=== PATIENT | female | born 1945 | race Caucasian/White ===

== ENCOUNTER → 2021-03-26 14:48 | Outpatient (CLI) | payer MEDICARE, BC, SELFPAY ==
--- NOTE | 2021-03-26 | DI.MG.S_ITS ---
UNILATERAL LEFT DIGITAL DIAGNOSTIC MAMMOGRAM 3D/2D WITH ADDITIONAL VIEWS: 03/26/2021 CLINICAL: Additional evaluation requested from prior study. Comparison is made to exams dated: 01/07/2021 mammogram, 01/07/2021 mammogram, and 01/07/2020 mammogram - outside facility. There are scattered fibroglandular elements in left breast. The irregular asymmetry in the left breast at 3 o'clock middle depth is no longer seen and most likely is fibroglandular tissue. This is not confirmed with additional views. No other significant masses or calcifications are seen in the breast. IMPRESSION: INCOMPLETE: NEEDS ADDITIONAL IMAGING EVALUATION Resolution of screening mammography abnormality with additional views. Ultrasound evaluation to confirm resolution is recommended and was performed immediately following this exam. This exam was interpreted at Station ID: [id number]. NOTE: For mammograms, a report in lay terms will be sent to the patient. Approximately 15% of breast malignancies will not be visualized mammographically. In the management of a palpable breast mass, a negative mammogram must not discourage biopsy of a clinically suspicious lesion. Electronically Signed By: Mary calle/:03/26/2021 15:25:32 ACR BI-RADS Category 0: Incomplete 3340F
--- NOTE | 2021-03-26 14:51 | DI.US.S_ITS ---
LIMITED ULTRASOUND OF LEFT BREAST: 03/26/2021 CLINICAL: Patient returns today to evaluate an asymmetry in the left breast. Comparison is made to exams dated: 03/26/2021 mammogram - [facility], 01/07/2021 mammogram, 01/07/2021 mammogram, 01/07/2020 mammogram - outside facility, 08/18/2016 mammogram - [facility], and 08/14/2012 mammogram - [facility]. Ultrasound of the left breast 3 o'clock region was performed. Ruiz scale images of the real-time examination were reviewed. No significant abnormalities were seen sonographically in the left breast. Specifically, no finding to correspond to the patient's resolved screening mammographic abnormality. IMPRESSION: NEGATIVE There is no sonographic correlate to the patient's screening mammography abnormality and no evidence of malignancy. Return to annual mammogram screening schedule is recommended. Findings and recommendations were conveyed to the patient at time of exam. This exam was interpreted at Station ID: [id number]. Electronically Signed By: Mary calle/:03/26/2021 16:06:51 letter sent: Normal Exam Ultrasound BI-RADS: 1 Negative
== END ==
PROVIDERS: Family Provider Family Medicine; PCP Physician Assistant; Referring Provider Physician Assistant; Visit Provider Physician Assistant
DX: R92.8 Other abnormal and inconclusive findings on diagnostic imaging of breast (principal); N64.89 Other specified disorders of breast
CPT/HCPCS: 76642; 77065; G0279

== ENCOUNTER → 2021-08-12 11:13 | Outpatient (CLI) | payer MEDICARE, BC, SELFPAY | PROVIDERS: Family Provider Family Medicine; PCP Physician Assistant; Referring Provider Physician Assistant; Visit Provider Physician Assistant | DX: Z13.820 Encounter for screening for osteoporosis (principal); Z78.0 Asymptomatic menopausal state; M85.852 Other specified disorders of bone density and structure, left thigh | CPT/HCPCS: 77080 ==

== ENCOUNTER → 2021-11-02 09:08 | Outpatient (CLI) | payer MEDICARE, BC, SELFPAY ==
[2021-11-02 20:03] LABS: Add Manual Diff / Slide Review NO; Basophils Absolute Auto 0 /uL (0-100); Basophils Percent Auto 0.9 % (0-2); Eosinophils Absolute Auto 100 /uL (0-450); Eosinophils Percent Auto 2.2 % (2-4); Hematocrit 41.7 % (36-46); Hemoglobin 13.9 g/dL (12.0-16.0); Lymphocytes Absolute Auto 1700 /uL (1100-4500); Lymphocytes Percent Auto 31.9 % (25-40); Mean Corpuscular HGB Conc 33.3 % (30-36); Mean Corpuscular Hemoglobin 29.5 PG (26-34); Mean Corpuscular Volume 88.7 fL (80-100); Monocytes Absolute Auto 400 /uL (0-900); Monocytes Percent Auto 8.2 % (3-14); Neutrophils Absolute Auto 3000 /uL (1500-7000); Neutrophils Percent Auto 56.8 % (50-75); Platelet Count 199 X10^3/uL (150-400); Red Cell Distribution Width 13.9 % (11.6-14.8); White Blood Cell Count 5.3 X10^3/uL (4.5-11.0)
[2021-11-02 20:12] LABS: HEMOLYSIS < 15 (0-50); Iron 102 ug/dL (37-170)
[2021-11-02 20:20] LABS: Alanine Aminotransferase 14 IU/L (<35); Albumin 4.5 g/dL (3.5-5.0); Albumin Globulin Ratio 1.7 (1.0-2.8); Alkaline Phosphatase 54 U/L (38-126); Aspartate Aminotransferase 31 IU/L (14-36); BUN Creatinine Ratio 22.9 (6-22); Bilirubin Total 0.5 mg/dL (0.2-1.3); Blood Urea Nitrogen 22 mg/dL (7-17); Calcium 9.6 mg/dL (8.4-10.2); Carbon Dioxide 30 mmol/L (22-32); Chloride 103 mmol/L (98-107); Cholesterol 187 mg/dL (140-199); Estimated Glomerular Filt Rate > 60 mL/min (>60); Globulin 2.7 g/dL (1.7-4.1); Glucose 82 mg/dL (80-110); HDL Cholesterol 75 mg/dL (40-60); HEMOLYSIS < 15 (0-50); LDL Cholesterol Calculated 98 mg/dL (<100); Potassium 4.7 mmol/L (3.4-5.1); Sodium 139 mmol/L (137-145); Total Protein 7.2 g/dL (6.3-8.2); Triglycerides 72 mg/dL (35-150)
[2021-11-02 20:22] LABS: Percent Iron Saturation 28 % (15-50); Total Iron Binding Capacity 365 ug/dL (265-497); Transferrin 294 mg/dL (206-381)
[2021-11-02 20:54] LABS: Ferritin 26 ng/mL (11-264)
== END ==
PROVIDERS: Family Provider Family Medicine; PCP Physician Assistant; Visit Provider Physician Assistant
DX: L29.9 Pruritus, unspecified (principal); Z86.2 Personal history of diseases of the blood and blood-forming organs and certain disorders involving the immune mechanism; E78.00 Pure hypercholesterolemia, unspecified; M79.651 Pain in right thigh
CPT/HCPCS: 80053; 80061; 82728; 83540; 83550; 85025

== ENCOUNTER → 2022-02-02 15:43 | Outpatient (CLI) | payer MEDICARE, BC, SELFPAY ==
--- NOTE | 2022-02-02 15:46 | DI.MG.S_ITS ---
BILATERAL DIGITAL SCREENING MAMMOGRAM 3D/2D WITH CAD: 02/02/2022 CLINICAL: Routine screening. Comparison is made to exams dated: 03/26/2021 mammogram - [facility], 01/07/2021 mammogram, 01/07/2021 mammogram, and 01/07/2020 mammogram - outside facility. There are scattered areas of fibroglandular density in both breasts (category b / 25%-50% glandular tissue). Current study was also evaluated with a Computer Aided Detection (CAD) system. There is a possible developing irregular asymmetry in the left breast middle depth central to the nipple seen on the mediolateral oblique view only. No other significant masses, calcifications, or other findings are seen in either breast. IMPRESSION: INCOMPLETE: NEEDS ADDITIONAL IMAGING EVALUATION The possible developing irregular asymmetry in the left breast is indeterminate. Additional views with possible ultrasound are recommended. Based on the Tyrer Cuzick model (a risk assessment model) the patient's lifetime risk is 4.8% and her 10 year risk is 0.0%. According to the ACR, ACS, and NCCN guidelines, an annual breast MRI exam along with mammogram is recommended if the patient's lifetime risk is 20% or greater. This exam was interpreted at Station ID: [id number]. NOTE: For mammograms, a report in lay terms will be sent to the patient. Approximately 15% of breast malignancies will not be visualized mammographically. In the management of a palpable breast mass, a negative mammogram must not discourage biopsy of a clinically suspicious lesion. Electronically Signed By: Mary calle/shelly:02/03/2022 15:06:25 letter sent: Additional Imaging Needed ACR BI-RADS Category 0: Incomplete [id number]
== END ==
PROVIDERS: Family Provider Family Medicine; PCP Physician Assistant; Referring Provider Physician Assistant; Visit Provider Physician Assistant
DX: Z12.31 Encounter for screening mammogram for malignant neoplasm of breast (principal)
CPT/HCPCS: 77063; 77067

== ENCOUNTER → 2022-02-25 13:30 | Outpatient (CLI) | payer MEDICARE, BC, SELFPAY ==
--- NOTE | 2022-02-25 | DI.MG.S_ITS ---
UNILATERAL LEFT DIGITAL DIAGNOSTIC MAMMOGRAM 3D/2D WITH ADDITIONAL VIEWS: 02/25/2022 CLINICAL: Additional evaluation requested from prior study. Comparison is made to exams dated: 02/02/2022 mammogram, 03/26/2021 mammogram - [facility], 01/07/2021 mammogram, and 01/07/2021 mammogram - outside facility. There are scattered areas of fibroglandular density in the left breast (category b / 25%-50% glandular tissue). Prior area of architectural distortion is no longer seen in the left breast at 12 o'clock in the middle depth with additional views. No significant masses, calcifications, or other findings are seen in the breast. IMPRESSION: INCOMPLETE: NEEDS ADDITIONAL IMAGING EVALUATION Resolution of screening mammography abnormality with additional views. Ultrasound evaluation to confirm resolution is recommended and was performed immediately following this exam. Based on the Tyrer Cuzick model (a risk assessment model) the patient's lifetime risk is 4.8% and her 10 year risk is 0.0%. According to the ACR, ACS, and NCCN guidelines, an annual breast MRI exam along with mammogram is recommended if the patient's lifetime risk is 20% or greater. This exam was interpreted at Station ID: [id number]. NOTE: For mammograms, a report in lay terms will be sent to the patient. Approximately 15% of breast malignancies will not be visualized mammographically. In the management of a palpable breast mass, a negative mammogram must not discourage biopsy of a clinically suspicious lesion. Electronically Signed By: Mary calle/:02/25/2022 14:02:11 ACR BI-RADS Category 0: Incomplete [id number]
--- NOTE | 2022-02-25 13:33 | DI.US.S_ITS ---
LIMITED ULTRASOUND OF LEFT BREAST: 02/25/2022 CLINICAL: Patient returns today to evaluate a focal asymmetry in the left breast. Comparison is made to exams dated: 02/25/2022 mammogram, 02/02/2022 mammogram, 03/26/2021 ultrasound, and 03/26/2021 mammogram - [facility]. Ultrasound of the left breast 12 o'clock region was performed. Ruiz scale images of the real-time examination were reviewed. No significant abnormalities were seen sonographically in the left breast. Specifically, no finding to correspond to the patient's resolved screening mammographic abnormality. IMPRESSION: NEGATIVE There is no sonographic correlate to the patient's palpable abnormality and no evidence of malignancy. Return to annual mammogram screening schedule is recommended. Findings and recommendations were conveyed to the patient at time of exam. This exam was interpreted at Station ID: [id number]. Electronically Signed By: Mary calle/:02/25/2022 14:12:58 letter sent: Normal Exam Ultrasound BI-RADS: 1 Negative
== END ==
PROVIDERS: Family Provider Family Medicine; PCP Physician Assistant; Referring Provider Physician Assistant; Visit Provider Physician Assistant
DX: R92.8 Other abnormal and inconclusive findings on diagnostic imaging of breast (principal)
CPT/HCPCS: 76642; 77065; G0279

== ENCOUNTER → 2022-03-16 12:15 | Outpatient (CLI) | payer MEDICARE, BC, SELFPAY ==
--- NOTE | 2022-03-16 12:17 | DI.RAD.S_ITS ---
PROCEDURE: XR HIP W PEL IF DONE RT 2V INDICATIONS: Right Hip Pain TECHNIQUE: AP pelvis with lateral view(s) of the right hip(s). COMPARISON: None. FINDINGS: Bones: No fractures or dislocations. Pelvic ring appears intact. No suspicious bony lesions. Moderate right hip osteoarthritic degenerative change with joint space narrowing and osseous hypertrophy. Soft tissues: The visualized bowel gas pattern is normal. No suspicious soft tissue calcifications. IMPRESSION: Moderate right hip osteoarthritis. Dictated by: Donya Barnard MD, PhD on 03/16/2022 at 13:57 Approved by: Donya Barnard MD, PhD on 03/16/2022 at 13:57
== END ==
PROVIDERS: Family Provider Family Medicine; PCP Physician Assistant; Referring Provider Anesthesiology; Visit Provider Anesthesiology
DX: M16.11 Unilateral primary osteoarthritis, right hip (principal); M51.16 Intervertebral disc disorders with radiculopathy, lumbar region; M79.651 Pain in right thigh
CPT/HCPCS: 73502; 99214

== ENCOUNTER → 2022-04-08 12:15 | Outpatient (CLI) | payer MEDICARE, BC, SELFPAY ==
--- NOTE | 2022-04-08 12:17 | DI.MRI.S_ITS ---
PROCEDURE: MR LUMBAR SPINE WO CON INDICATIONS: Lumbar radiculopathy - right TECHNIQUE: Noncontrast sagittal T1 spin echo and T2 fast echo, sagittal STIR, and T2 fast spin echo through the lumbar spine. In cases with scoliosis, additional coronal T2 fast spin echo may be performed. COMPARISON: None. FINDINGS: Image quality: Excellent. Alignment and Curvature: There is normal bony alignment. Bone Marrow: Marrow is of normal overall signal. No acute vertebral body compression fractures. Incidental T11 right perineal cyst results in remodeling of the right neural foramina partially imaged Spinal Cord: Conus medullaris terminates at the L2 level. Visualized cord demonstrates normal signal and size. Paraspinous Soft Tissues: No paravertebral masses. T12-L1: Normal appearance. L1-L2: Normal appearance. L2-L3: Normal appearance. L3-L4: Normal appearance. L4-L5: A disc space is maintained. Mild circumferential disc bulge, hypertrophic facet joints and ligamentum flavum laxity results in mild central stenosis. No foraminal stenosis. L5-S1: Disc space narrowing and circumferential disc bulge present. No central stenosis. Mild bilateral foraminal stenosis. IMPRESSION: Degenerative disc disease and arthropathy results in mild central stenosis at L4-5 Approved by: Kieran Coe M.D. on 04/08/2022 at 14:48
== END ==
PROVIDERS: Family Provider Family Medicine; PCP Physician Assistant; Referring Provider Anesthesiology; Visit Provider Anesthesiology
DX: M47.26 Other spondylosis with radiculopathy, lumbar region (principal); M51.16 Intervertebral disc disorders with radiculopathy, lumbar region; M48.061 Spinal stenosis, lumbar region without neurogenic claudication; M79.651 Pain in right thigh
CPT/HCPCS: 72148

== ENCOUNTER 2022-05-06 10:05 | Outpatient (CLI) | payer MEDICARE, BC, SELFPAY ==
--- NOTE | 2022-05-06 10:08 | DI.RAD.S_ITS ---
PROCEDURE: PAIN L INTERLAMINAR/CAUDAL INJ INDICATIONS: SPINAL STENOSIS COMPARISON: [facility], MR, MR LUMBAR SPINE WO CON, 04/08/2022, 12:22. FINDINGS: Fluoroscopic spot filming was performed to verify placement of spinal needles at the L4-L5 level(s), as labeled on the films. Appropriate location(s) of the needle tip(s) was confirmed by injection of iodinated contrast. IMPRESSION: Fluoroscopy for pain management. Dictated by: Baron Connor M.D. on 05/06/2022 at 12:23 Approved by: Baron Connor M.D. on 05/06/2022 at 12:23
[2022-05-06 10:38] VITALS: BP 155/68; PULSE 61; RESP 16; TEMP 36.7; O2SAT 99
[2022-05-06 11:15] VITALS: BP 161/99; PULSE 74; RESP 16; O2SAT 100
[2022-05-06 11:20] VITALS: BP 153/66; PULSE 68; RESP 18; O2SAT 100
[2022-05-06] MEDS: IOPAMIDOL 15 ML VIAL 3 ML INJ (11:21)
[2022-05-06] MEDS: BUPIVACAINE 0.5% MDV 5 ML SUBCUT (11:22)
[2022-05-06 11:25] VITALS: BP 145/60; PULSE 68; RESP 14; O2SAT 100
[2022-05-06 11:35] VITALS: BP 152/68; PULSE 63; RESP 18; O2SAT 98
--- NOTE | 2022-05-06 12:35 | P.PCN_ITS ---
Date/Time/Diagnoses Date of procedure: 05/06/22 Time of procedure: 11:00 Procedure Notes Physician: Jareth Conde Total Fluoroscopy time (seconds): 19 Total sedation minutes: 0 Procedure in detail & Post-procedure care: Right directed L4-5 Interlaminar Epidural Steroid Injection Indications: Iraida is referred by Dr. Pa for treatment of lumbar radiculopathy with low back and leg pain. Preoperative diagnosis: Right lumbar radiculopathy Postoperative diagnosis: Same Focused Examination: Ax3 Mood and affect are normal Vital Signs: VSS ASA: 2 Consent: Following review of allergies and potential side effects/complications, including, but not necessarily limited to, infection, allergic reaction, local tissue breakdown, stroke, temporary or permanent nerve injury, paralysis, and possible , the patient indicated that they understood and agreed to proceed.? An informed consent document was signed by the patient, witnessed by a nurse and placed in the patient's chart.? Additionally, other treatment options including medications and physical therapy were reviewed with the patient. All questions were answered. Site was then marked. Anesthesia: Local Position: Prone Monitoring: NIBP, Pulse oximetry, 3 lead EKG Needle used: 18 G 3.5? Tuohy Contrast: Isovue 300M Injectate: Depo-Medrol 80 mg (40 milligrams/mL) with Bupivacaine 1 mL Technique: The skin was prepped with chloraprep and then draped in a sterile fashion. Time out was performed as per protocol. Oxygen applied via NC. Skin and subcutaneous structures of the needle entry site was then infiltrated with 3 mL of lidocaine 1%. Under AP, lateral and contralateral oblique fluoroscopic control, the Tuohy needle was guided into the L4-5 epidural space. The space was accessed with loss of resistance technique. Isovue 300M was then injected and the spread was consistent with the epidural space. There was no evidence for intravascular or intrathecal uptake. After negative aspiration, the above- mentioned injectate was then slowly administered and the needle withdrawn. The patient expressed no unusual discomfort or paresthesias during the injection. Band-Aids applied to injection sites. EBL: less than 1 ml Complications: None Post Procedure: Patient was taken to the recovery and monitored. The patient was provided a Pain Log to continue to record the patient's response to the target-specific procedure prior to the patient's follow-up visit with the referring physician. Patient was stable upon discharge. Detailed post procedure instructions were provided. Patient was asked to call in the event of worsening pain, fever, weakness, numbness or bladder or bowel incontinence.
== END 2022-05-06 11:38 | disposition home or self-care (01) ==
LOC: RAD 10:07
PROVIDERS: Family Provider Family Medicine; PCP Physician Assistant; Referring Provider Anesthesiology; Visit Provider Anesthesiology
DX: M54.16 Radiculopathy, lumbar region (principal)
CPT/HCPCS: 62323; J1030; J1040; J2920; J3490